=== PATIENT | female | born 1960 | race Caucasian/White ===

== ENCOUNTER 2019-01-15 09:10 | Emergency (ER) | payer MEDICARE, MEDICAID ==
[~2019-01-15] VITALS: Ht 162.6 cm; Wt 50.2 kg
[2019-01-15 09:29] VITALS: BP 132/79
== END 2019-01-15 10:38 | disposition home or self-care (01) ==
LOC: EMS 09:11
DX: L55.0 Sunburn of first degree (principal); Z59.0 Homelessness

== ENCOUNTER 2019-01-26 12:42 | Inpatient (IN) | payer MEDICARE, MEDICAID ==
[~2019-01-26] VITALS: Ht 167.6 cm; Wt 52.2 kg
[2019-01-26] MEDS ORDERED: HALOPERIDOL LACTATE 5 MG/ML VIAL IM ONE (15:15)
[2019-01-26] MEDS ORDERED: LORazepam 2 MG/ML VIAL IM ONE (15:15)
[2019-01-26] MEDS ORDERED: DiphenhydrAMINE HCL 50 MG/ML VIAL IM ONE (15:15)
[2019-01-26 16:49] LABS: BASOPHILS % (AUTO) 1.2 % (0.0-2.0); EOSINOPHILS % (AUTO) 1.5 % (1.0-6.0); HEMATOCRIT 41.4 % (36-46); HEMOGLOBIN 13.7 g/dL (12.0-16.0); LYMPHOCYTES # (AUTO) 2.3 K/uL (1.0-4.8); LYMPHOCYTES % (AUTO) 38.3 % (22.0-44.0); MEAN CORPUSCULAR HEMOGLOBIN 28.9 pg (26.0-34.0); MEAN CORPUSCULAR HGB CONC 33.2 G/dL (31.0-37.0); MEAN CORPUSCULAR VOLUME 87 fL (80-100); MONOCYTES # (AUTO) 0.5 K/uL (0.1-1.0); MONOCYTES % (AUTO) 8.3 % (2.0-9.0); NEUTROPHILS % (AUTO) 50.7 % (40.0-70.0); PLATELET COUNT (AUTO) 295 K/uL (150-450); RED BLOOD CELL COUNT(AUTO) 4.76 MIL/uL (4.00-5.20); RED CELL DISTRIBUTION WIDTH 13.2 % (11.5-14.5)
[2019-01-26 16:57] LABS: ANION GAP 6 mmol/L (8-16); CALCIUM, TOTAL 9.3 mg/dL (8.8-10.5); CARBON DIOXIDE 28 mmol/L (22-29); CHLORIDE 105 mmol/L (98-107); CREATININE 0.84 mg/dL (0.60-1.30); GLOMERULAR FILTR. RATE CALC > 60 mL/min (>60); GLUCOSE,RANDOM 89 mg/dL (70-110); POTASSIUM 3.9 mmol/L (3.5-5.1); SODIUM SERUM 139 mmol/L (136-145); UREA NITROGEN, BLOOD 12 mg/dL (7-18)
[2019-01-26 17:10] LABS: ALANINE AMINOTRANSFERASE 17 U/L (12-78); ALBUMIN 3.8 g/dL (3.4-5.0); ALKALINE PHOSPHATASE 92 U/L (46-116); ASPARTATE AMINOTRANSFERASE 20 U/L (15-37); BILIRUBIN,TOTAL 0.3 mg/dL (0.1-1.0); HCG,QUANTITATIVE 5 mIU/mL (0-6)
[2019-01-26] MEDS ORDERED: ZOLPIDEM TARTRATE 10 MG TABLET PO PRN (18:00)
[2019-01-26] MEDS ORDERED: HALOPERIDOL 5 MG TABLET PO PRN (18:00)
[2019-01-26 19:33] VITALS: BP 137/82
[2019-01-26 20:20] LABS: GLUCOMETER DEV NAME(LOC) BV3S.; GLUCOSE,POINT OF CARE 110 MG/DL (70-110)
[2019-01-26] MEDS ORDERED: PNEUMOCOCCAL VACCINE POLYVALENT 0.5 ML VIAL [PPSV23] IM ONE (21:00)
[2019-01-27 06:34] VITALS: BP 125/80
[2019-01-27 08:12] VITALS: BP 122/81
[2019-01-27 08:12] LABS: CHOL/HDL RATIO 3.4 (3.9-5.7)
[2019-01-27] MEDS ORDERED: MAGNESIUM HYDROXIDE SUSPENSION 30 ML UDCUP PO PRN (18:15)
[2019-01-27] MEDS: RisperiDONE 1 MG TABLET PO SCH (20:16)
[2019-01-28 02:22] VITALS: BP 134/61
[2019-01-28] MEDS: LORazepam 2 MG TABLET PO PRN (04:16)
[2019-01-28 08:11] LABS: APPEARANCE,URINE CLEAR (CLEAR); BILIRUBIN,URINE NEGATIVE (NEGATIVE); GLUCOSE, URINE (UA) NEGATIVE (NEGATIVE); KETONES,URINE NEGATIVE (NEGATIVE); LEUKOCYTE ESTERASE ,URINE SMALL (NEGATIVE); NITRATE,URINE NEGATIVE (NEGATIVE); OCCULT BLOOD,URINE NEGATIVE (NEGATIVE); PROTEIN,URINE NEGATIVE (NEGATIVE); UROBILINOGEN,URINE 0.2 mg/dL (<=1.0)
[2019-01-28 08:22] VITALS: BP 124/55
[2019-01-28 08:31] LABS: AMPHET/METH SCREEN,URINE NEGATIVE (NEGATIVE); BACTERIA,URINE None Seen /HPF (None Seen); BARBITURATE SCREEN, URINE NEGATIVE (NEGATIVE); BENZODIAZEPINES SCREEN,URINE NEGATIVE (NEGATIVE); CANNABINOID SCREEN,URINE NEGATIVE (NEGATIVE); COCAINE SCREEN,URINE NEGATIVE (NEGATIVE); METHADONE SCREEN, URINE NEGATIVE (NEGATIVE); OPIATE SCREEN,URINE NEGATIVE (NEGATIVE); RBC,URINE None Seen /HPF (0-2); SQUAMOUS EPITHELIAL CELL,UR Few /LPF (None Seen)
[2019-01-28 08:32] LABS: PHENCYCLIDINE SCREEN,URINE NEGATIVE (NEGATIVE)
[2019-01-28] MEDS: RisperiDONE 1 MG TABLET PO SCH ×2 (20:07→20:35)
[2019-01-29 08:01] VITALS: BP 128/79
[2019-01-29] MEDS ORDERED: IBUPROFEN 600 MG TABLET PO PRN (14:45)
[2019-01-29] MEDS ORDERED: ACETAMINOPHEN 325 MG TABLET PO PRN (14:45)
[2019-01-29 16:32] VITALS: BP 130/78
[2019-01-29] MEDS: RisperiDONE 1 MG TABLET PO SCH (20:20)
[2019-01-29] MEDS ORDERED: LOPERAMIDE HCL 2 MG CAPSULE PO PRN (21:00)
[2019-01-30 07:09] VITALS: BP 120/71
[2019-01-30 08:03] VITALS: BP 101/68
[2019-01-30 16:02] VITALS: BP 108/61
[2019-01-30] MEDS: LORazepam 2 MG TABLET PO PRN (18:50)
[2019-01-30] MEDS: RisperiDONE 1 MG TABLET PO SCH (20:21)
[2019-01-31 05:59] VITALS: BP 118/67
[2019-01-31 16:00] VITALS: BP 115/72
[2019-01-31] MEDS: RisperiDONE 1 MG TABLET PO SCH (20:09)
[2019-02-01 06:10] VITALS: BP 122/78
[2019-02-01 08:15] VITALS: BP 122/84
[2019-02-01 16:04] VITALS: BP 123/76
[2019-02-01] MEDS: RisperiDONE 1 MG TABLET PO SCH (20:07)
[2019-02-02 05:28] VITALS: BP 136/80
[2019-02-02 08:06] VITALS: BP 111/64
[2019-02-02 16:00] VITALS: BP 139/77
[2019-02-02] MEDS: RisperiDONE 1 MG TABLET PO SCH (20:11)
[2019-02-03 06:29] VITALS: BP 127/77
[2019-02-03] MEDS: LORazepam 2 MG TABLET PO PRN (07:59)
[2019-02-03 08:06] VITALS: BP 121/67
[2019-02-03 16:26] VITALS: BP 133/62
[2019-02-03] MEDS: RisperiDONE 1 MG TABLET PO SCH (20:03)
[2019-02-04 08:04] VITALS: BP 127/72
[2019-02-04 16:04] VITALS: BP 136/75
[2019-02-04] MEDS: RisperiDONE 1 MG TABLET PO SCH (20:01)
[2019-02-05 06:40] VITALS: BP 100/61
[2019-02-05 08:11] VITALS: BP 100/78
[2019-02-05 16:10] VITALS: BP 129/67
[2019-02-05] MEDS: LORazepam 2 MG TABLET PO PRN (16:31)
[2019-02-05] MEDS: RisperiDONE 2 MG TABLET PO SCH (20:37)
[2019-02-06 08:27] VITALS: BP 110/59
[2019-02-06 16:11] VITALS: BP 112/62
[2019-02-06] MEDS: RisperiDONE 2 MG TABLET PO SCH (20:19)
[2019-02-07 05:47] VITALS: BP 120/72
[2019-02-07 08:17] VITALS: BP 123/70
[2019-02-07] MEDS ORDERED: RISP2 PO (15:30)
[2019-02-07 16:04] VITALS: BP 131/73
== END 2019-02-07 19:02 | disposition home or self-care (01) | DRG 885 ==
LOC: EMS 12:43 → B3A 17:42
DX: F25.0 Schizoaffective disorder, bipolar type (principal); E11.9 Type 2 diabetes mellitus without complications; Z59.0 Homelessness; Z78.1 Physical restraint status; Z79.899 Other long term (current) drug therapy; Z28.21 Immunization not carried out because of patient refusal
CPT/HCPCS: 80307; 96372; G0480; J1200; J1630; J2060

== ENCOUNTER 2020-09-28 21:32 | Emergency (ER) | payer MEDICAID, MEDICARE ==
[~2020-09-28] VITALS: Ht 167.6 cm; Wt 54.5 kg
[~2020-09-28 21:32] MED LIST: RISP2TAB45 PO
[2020-09-28] MEDS ORDERED: PERMETHRIN 5% 60 GM CREAM TP ONE ×2 (23:00)
[2020-09-28] MEDS ORDERED: PERMETHRIN 1% 60 ML LOTION TP ONE (23:15)
[2020-09-28 23:31] LABS: GLUCOSE,POINT OF CARE 112 MG/DL (70-110)
[2020-09-28 23:45] VITALS: BP 112/78
[2020-09-29] MEDS ORDERED: SODIUM CHLORIDE 0.9% 1,000 ML IV ONE
== END 2020-09-29 02:50 | disposition left against medical advice (07) ==
LOC: EMS 21:32
DX: R00.0 Tachycardia, unspecified (principal); B88.9 Infestation, unspecified; F20.9 Schizophrenia, unspecified; F17.200 Nicotine dependence, unspecified, uncomplicated; Z59.0 Homelessness
CPT/HCPCS: 82962; 93005; 99283; 99284

== ENCOUNTER 2020-11-17 12:26 | Emergency (ER) | payer SELFPAY ==
[~2020-11-17] VITALS: Ht 160 cm; Wt 68.2 kg
[2020-11-17] MEDS ORDERED: PERMETHRIN 5% 60 GM CREAM TP ONE ×2 (13:15)
[2020-11-17] MEDS ORDERED: ACETAMINOPHEN 500 MG TABLET PO ONE (15:00)
[2020-11-17 17:06] VITALS: BP 154/62
== END 2020-11-17 17:14 | disposition home or self-care (01) ==
LOC: EMS 12:37
DX: S31.000A Unspecified open wound of lower back and pelvis without penetration into retroperitoneum, initial encounter (principal); B85.2 Pediculosis, unspecified; F20.9 Schizophrenia, unspecified; F17.210 Nicotine dependence, cigarettes, uncomplicated; X58.XXXA Exposure to other specified factors, initial encounter; Y93.89 Activity, other specified; Y92.89 Other specified places as the place of occurrence of the external cause; Y99.8 Other external cause status
CPT/HCPCS: 99283